=== PATIENT | female | born 1985 | race Hispanic/Latino ===

== ENCOUNTER 2018-02-23 14:59 | Emergency (ER) | payer MEDICAID ==
[2018-02-23 14:59] VITALS: BMI 46.9
--- NOTE | 2018-02-23 15:20 | ED PDOC ---
Arrival/HPI - General Time Seen by Provider: 02/23/18 15:15 Historian: Patient - History of Present Illness Narrative History of Present Illness (Text): 02/23/18 15:17 32 y/o female, pmh including RA which she is on the methotrexate, LMP on it right now and refused test, nkda, c/o rt. knee abrasion/pain with rt. elbow pain s/p tripped and fall which she landed on the rt. knee/elbow. Pt. stated that she was walking on the street, tripped, landed on the rt. knee and elbow region, no head/neck/back injury, no numbness or tingling, last tetanus doesn't remember, no palpitation or chest pain, no shortness of breath, no numbness or tingling, no other medical or psychological complaints. Time/Duration: 1-3 hours Symptom Onset: Sudden Symptom Course: Unchanged Quality: Aching Severity Level: 5 Past Medical History - Provider Review Nursing Documentation Reviewed: Yes - Tetanus Immunization Tetanus Immunization: Unknown - Cardiac Hx Cardiac Disorders: No Hx Hypertension: No - Pulmonary Hx Asthma: Yes - Neurological Hx Paralysis: No - Endocrine/Metabolic Hx Systemic Lupus Erythematosus: Yes - Hematological/Oncological Hx Blood Transfusions: No Hx Blood Transfusion Reaction: (NA) - Musculoskeletal/Rheumatological Hx Musculoskeletal Disorders: Yes Hx Rheumatoid Arthritis: Yes Other/Comment: lupus - Gastrointestinal Hx Gastritis: Yes - Genitourinary/Gynecological Hx Sexually Transmitted Diseases: No - Psychiatric Hx Emotional Abuse: No Hx Physical Abuse: No Hx Substance Use: No - Past Surgical History Past Surgical History: No Previous - Anesthesia Hx Anesthesia Reactions: No Hx Malignant Hyperthermia: No - Suicidal Assessment Feels Threatened In Home Enviroment: No Family/Social History - Physician Review Nursing Documentation Reviewed: Yes Family/Social History: Unknown Family HX Smoking Status: Never Smoked Hx Alcohol Use: Yes Hx Substance Use: No Hx Substance Use Treatment: No Allergies/Home Meds Allergies/Adverse Reactions: Allergies gluten Allergy (Uncoded 05/14/16 12:22) VOMITING Home Medications: Home Meds Medication Instructions Recorded Confirmed Albuterol Sulfate [Albuterol Hfa] 0.09 mg IH PRN PRN 12/12/13 05/14/16 Hydroxychloroquine Sulfate 200 mg PO BID 12/12/13 05/14/16 [Plaquenil] Methotrexate Sodium [Rheumatrex 2.5 mg PO TUE 05/14/16 05/14/16 Dose Pack] Omeprazole 20 mg PO DAILY 05/14/16 05/14/16 Ranitidine HCl [Acid Engine Lathe Operator 150] 150 mg PO DAILY 05/14/16 05/14/16 Review of Systems - Review of Systems Constitutional: absent: Fatigue, Fevers Eyes: absent: Vision Changes ENT: absent: Hearing Changes Respiratory: absent: SOB, Cough Cardiovascular: absent: Chest Pain Gastrointestinal: absent: Abdominal Pain, Nausea, Vomiting Musculoskeletal: Arthralgias. absent: Back Pain, Neck Pain, Joint Swelling, Myalgias Skin: Other (+abrasion). absent: Rash, Pruritis, Skin Lesions, Laceration, Abscess, Ulcer, Cellulitis Neurological: absent: Headache, Dizziness Psychiatric: absent: Anxiety, Depression, Suicidal Ideation Physical Exam Vital Signs Temp Pulse Resp BP Pulse Ox 02/23/18 16:58 82 18 132/87 100 02/23/18 15:25 98.2 F 103 H 18 136/93 H 100 Appearance: Positive for: Well-Appearing, Non-Toxic, Comfortable Pain Distress: Moderate Mental Status: Positive for: Alert and Oriented X 3 - Systems Exam Head: Present: Atraumatic, Normocephalic, Other (no facial bony tenderness or swelling. ). No: Tenderness, Contusion, Swelling, Ecchymosis, Abrasion, Laceration Pupils: Present: PERRL Extroacular Muscles: Present: EOMI Conjunctiva: Present: Normal Mouth: Present: Moist Mucous Membranes Neck: Present: Normal Range of Motion, Trachea Midline. No: Meningeal Signs, MIDLINE TENDERNESS, Paraspinal Tenderness, Lymphadenopathy Respiratory/Chest: Present: Clear to Auscultation, Good Air Exchange. No: Respiratory Distress, Accessory Muscle Use Cardiovascular: Present: Regular Rate and Rhythm, Normal S1, S2. No: Murmurs Abdomen: No: Tenderness, Distention, Peritoneal Signs, Rebound, Guarding Back: Present: Normal Inspection. No: CVA Tenderness, Midline Tenderness, Paraspinal Tenderness Upper Extremity: Present: Normal Inspection, Other (Rt. elbow: mild +ttp on the olecranon region, no other bony tenderness, no swelling, skin intact, no abrasion or laceration, FROM without limitation, sensation intact, motor 5/5. ) . No: Cyanosis, Edema Lower Extremity: Present: Normal Inspection, Other (Rt. knee: visible superficial abrasion approx. [id number] diameter, no streaking or ulcers, negative cruz and gooden signs, no joint laxity, FROM without limtiation, sensation intact, motor 5/5, neurovascular intact. Bilateral ankle and foot: no bony tenderness or swelling, no abrasion or laceration, neurovascular intact. ). No : Edema Neurological: Present: GCS=15, Speech Normal, Motor Func Grossly Intact, Gait Normal, Memory Normal Skin: Present: Warm, Dry, Normal Color. No: Rashes Psychiatric: Present: Alert, Oriented x 3, Normal Insight, Normal Concentration Medical Decision Making ED Course and Treatment: 02/23/18 15:23 Differential: fracture vs. contusion vs. dislocation vs. abrasion -tdap/motrin -rt. knee/elbow xray -wound irrigated with normal saline, clean with betadine, gauze dressing, balbir wrap -observe and reassess 02/23/18 15:58 -pt. refused test, stated that she is on her period now plus all her RA medications are , risks and benefits explained with the patient, xray department request the patient to sign the waiver, pt. agreed to sign it. I told the xray department to shield her while performing the xray just for in case. 02/23/18 16:28 -Rt. knee xray: ER wet read: no fracture or dislocation. -Rt. elbow xray: ER wet read: no fracture or dislocation. -Discharge home with balbir wraps, acetaminophen, ice compression, follow up with your own pmd and orthopedic within 2 days, return to the ER for any new or worsening signs or symptoms. - RAD Interpretation Radiology Orders: 02/23/18 15:25 ELBOW RIGHT 3 VIEWS ROUTINE [RAD] Stat KNEE W PATELLA RIGHT 3 VIEW [RAD] Stat Rt. Elbow: Date of service: 02/23/2018 PROCEDURE: Radiographs of the right elbow. HISTORY: fall, pain COMPARISON: No prior. FINDINGS: BONES: No acute fracture. JOINTS: Unremarkable. SOFT TISSUES: Normal. JOINT EFFUSION: None. OTHER FINDINGS: None. IMPRESSION: No demonstrated fracture or dislocation. Rt. Knee: Date of service: 02/23/2018 PROCEDURE: Right Knee Radiographs. HISTORY: fall, pain COMPARISON: None. FINDINGS: BONES: No acute fracture. JOINTS: Unremarkable. JOINT EFFUSION: None. OTHER FINDINGS: None. IMPRESSION: No demonstrated fracture or dislocation. Salvage Inspector: Radiologist - Medication Orders Current Medication Orders: Discontinued Medications Acetaminophen (Tylenol 325mg Tab) 650 mg PO STAT STA Stop: 02/23/18 15:27 Last Admin: 02/23/18 15:48 Dose: - PA / EAR NOSE AND THROAT SPECIALIST / Resident Statement / has reviewed & agrees with the documentation as recorded. Disposition/Present on Arrival - Present on Arrival Any Indicators Present on Arrival: No History of DVT/PE: No History of Uncontrolled Diabetes: No Urinary Catheter: No History of Decub. Ulcer: No History Surgical Site Infection Following: None - Disposition Have Diagnosis and Disposition been Completed?: Yes Diagnosis: Accidental fall, Abrasion, Contusion Disposition: HOME/ ROUTINE Disposition Time: 15:24 Patient Plan: Discharge Patient Problems: Current Active Problems Problem Status Onset Accidental fall Acute Abrasion Acute Contusion Acute Condition: GOOD Additional Instructions: -Discharge home with balbir wraps, acetaminophen, ice compression, follow up with your own pmd and orthopedic within 2 days, return to the ER for any new or worsening signs or symptoms. Prescriptions: Acetaminophen [Tylenol Extra Strength] 500 mg PO QID PRN #30 tablet PRN Reason: Other Referrals: Cory Piper III, MD [Medical Doctor] - Follow up with primary [facility] [place] - Follow up with primary Forms: WORK NOTE
[2018-02-23 15:31] VITALS: TEMP 98.2
--- NOTE | 2018-02-23 17:30 | RAD ---
Date of service: 02/23/2018 PROCEDURE: Radiographs of the right elbow. HISTORY: fall, pain COMPARISON: No prior. FINDINGS: BONES: No acute fracture. JOINTS: Unremarkable. SOFT TISSUES: Normal. JOINT EFFUSION: None. OTHER FINDINGS: None. IMPRESSION: No demonstrated fracture or dislocation.
--- NOTE | 2018-02-23 17:30 | RAD ---
Date of service: 02/23/2018 PROCEDURE: Right Knee Radiographs. HISTORY: fall, pain COMPARISON: None. FINDINGS: BONES: No acute fracture. JOINTS: Unremarkable. JOINT EFFUSION: None. OTHER FINDINGS: None. IMPRESSION: No demonstrated fracture or dislocation.
[2018-02-23 18:06] VITALS: BP 135/88; PULSE 89; RESP 17; O2SAT 99
== END 2018-02-23 17:31 | disposition home or self-care (01) ==
LOC: ED 14:59
DX: S80.211A Abrasion, right knee, initial encounter (principal); T14.8XXA Other injury of unspecified body region, initial encounter; W01.0XXA Fall on same level from slipping, tripping and stumbling without subsequent striking against object, initial encounter; Y93.01 Activity, walking, marching and hiking; Y92.410 Unspecified street and highway as the place of occurrence of the external cause; M06.9 Rheumatoid arthritis, unspecified; M32.9 Systemic lupus erythematosus, unspecified